=== PATIENT | male | born 1935 | race Caucasian/White ===

== ENCOUNTER 2024-11-13 19:06 | Inpatient (IN) | payer MEDICARE, BC ==
[~2024-11-13] VITALS: Ht 170.2 cm; Wt 117.8 kg
[2024-11-13] MEDS: NS (Normal Saline) 0.9% 1,000 ML IV SCH (21:29)
[2024-11-13] MEDS ORDERED: AMOX500T2 PO (22:11)
[2024-11-13] MEDS ORDERED: INSU100I24 INJ (22:11)
[2024-11-13] MEDS ORDERED: DICY20TA20 PO (22:19)
[2024-11-13] MEDS ORDERED: LANS30CA93 PO (22:19)
[2024-11-13] MEDS ORDERED: PREG75CA3 PO (22:19)
[2024-11-13] MEDS ORDERED: FLUTISP (22:19)
[2024-11-13] MEDS ORDERED: CYCL1DRO10 OU (22:19)
[2024-11-13] MEDS ORDERED: ALLO100T PO (22:19)
[2024-11-13] MEDS ORDERED: FURO20TA2 PO (22:19)
[2024-11-13] MEDS ORDERED: TOPI-256 PO (22:19)
[2024-11-13] MEDS ORDERED: LEVOTAB10 PO (22:19)
[2024-11-13] MEDS ORDERED: SIMV40TA20 PO (22:19)
[2024-11-13] MEDS ORDERED: BASA100I INJ (22:19)
[2024-11-13] MEDS ORDERED: BRIM0.2S13 OU (22:19)
[2024-11-13] MEDS ORDERED: NETA2.5D2 OU (22:19)
[2024-11-13] MEDS ORDERED: LEVO75TA4 PO (22:19)
[2024-11-13] MEDS ORDERED: ELIQ2.5T PO (22:19)
[2024-11-13] MEDS ORDERED: HOME MED LIST COMPLETE! XX SCH (22:20)
[2024-11-13] MEDS ORDERED: med rec comment (22:20)
[2024-11-13 22:39] LABS: BASO # 0.1 10^3/uL (0.0-0.2); BASO % 0.9 % (0.0-1.0); EOS # 0.5 10^3/uL (0.0-0.5); EOS % 5.0 % (0.0-3.0); LYMPH # 1.0 10^3/uL (1.5-5.0); LYMPH % 11.3 % (24.0-44.0); MONO # 0.6 10^3/uL (0.0-0.8); MONO % 7.0 % (2.0-8.0); NEUTROPHILS # 6.9 10^3/uL (1.5-8.5); NEUTROPHILS % 75.5 % (36.0-66.0); PLATELET COUNT, AUTOMATED 155 10^3/uL (150-450)
[2024-11-13 22:53] LABS: INR 1.02
[2024-11-13 23:01] LABS: CALCIUM LEVEL 9.0 MG/DL (8.3-10.6); CARBON DIOXIDE LEVEL 28.0 MMOL/L (20-31); CHLORIDE LEVEL 106.0 MMOL/L (98-107); CK-MB VALUE MASS 3.8 NG/ML (<3.6); CPK CREATINE PHOSPHOKINASE 110.0 U/L (46-171); CREATININE FOR GFR 1.87 MG/DL (0.70-1.30); GLOMERULAR FILTRATION RATE 34.2 (>35); MB/CK RELATIVE INDEX 3.45 (< OR =4); POTASSIUM SERUM 4.8 MMOL/L (3.5-5.1); SODIUM LEVEL 142.0 MMOL/L (136-145)
[2024-11-14] MEDS ORDERED: ACETAMINOPHEN *IV* 1,000 MG in IV 1 EA IV PRN (01:50)
[2024-11-14] MEDS ORDERED: GLUCOSE 4 GM CHEW PO PRN (01:50)
[2024-11-14] MEDS ORDERED: NALOXONE INJ 0.4 MG/1 ML VIAL IV PRN (01:50)
[2024-11-14] MEDS ORDERED: DEXTROSE 50% 50 ML SYRINGE IV PRN (01:50)
[2024-11-14] MEDS ORDERED: GLUCAGON INJ 1 MG VIAL SC PRN (01:50)
[2024-11-14] MEDS: TOPIRAMATE 25 MG TAB PO SCH (02:12)
[2024-11-14] MEDS: PREGABALIN 75 MG CAP PO SCH (02:12)
[2024-11-14] MEDS: LR 1,000 ML IV SCH (02:13)
[2024-11-14] MEDS: INSULIN LISPRO (NovoLOG) PER UNIT SC SCH ×3 (06:00→09:05)
[2024-11-14] MEDS: LEVOTHYROXINE 75 MCG TABLET (0.075 MG) PO SCH (06:00)
[2024-11-14 06:30] LABS: PLATELET COUNT, AUTOMATED 138 10^3/uL (150-450)
[2024-11-14 07:01] LABS: ALT/SGPT 18.0 U/L (7.0-40); AST/SGOT 24.0 U/L (<34); CALCIUM LEVEL 9.3 MG/DL (8.3-10.6); CARBON DIOXIDE LEVEL 24.0 MMOL/L (20-31); CHLORIDE LEVEL 107.0 MMOL/L (98-107); CREATININE FOR GFR 1.7 MG/DL (0.70-1.30); GLOMERULAR FILTRATION RATE 38.3 (>35); MAGNESIUM LEVEL 1.9 MG/DL (1.8-2.4); POTASSIUM SERUM 4.9 MMOL/L (3.5-5.1); SODIUM LEVEL 143.0 MMOL/L (136-145)
[2024-11-14] MEDS: DOCUSATE SODIUM 100 MG CAPSULE PO SCH (08:18)
[2024-11-14] MEDS ORDERED: PERCOCET 5MG/325MG TAB PO PRN ×2 (08:20)
[2024-11-14] MEDS ORDERED: MORPHINE 2 MG/ML 1 ML VIAL IV PRN ×2 (08:20→11:20)
[2024-11-14] MEDS ORDERED: DICYCLOMINE 10 MG CAP PO PRN (08:25)
[2024-11-14] MEDS ORDERED: OMEPRAZOLE 20MG CAP PO SCH (09:00)
[2024-11-14] MEDS: PANTOPRAZOLE 40MG VIAL IV SCH (09:04)
[2024-11-14] MEDS: LanTUS (INSULIN GLARGINE INJ) 1 UNITS/0.01 ML SC SCH (09:07)
[2024-11-14] MEDS: MORPHINE 2 MG/ML 1 ML VIAL IV PRN ×2 (09:14→14:36)
[2024-11-14] MEDS: AUGMENTIN 500 MG TAB PO SCH (11:57)
[2024-11-14 15:48] VITALS: TEMP 97.3
[2024-11-14 16:00] VITALS: BP 123/82; TEMP 97.7; O2SAT 95
[2024-11-14 19:47] VITALS: BP 130/80; TEMP 98.2; O2SAT 90
[2024-11-14 20:00] VITALS: BP 130/80; TEMP 98.2; O2SAT 90
[2024-11-14] MEDS: BRIMONIDINE 0.2% EYE DROPS (PATIENT'S OWN MED) OU SCH (21:00)
[2024-11-14] MEDS: SIMVASTATIN 40 MG TAB PO SCH (21:48)
[2024-11-15 03:58] VITALS: BP 154/71; TEMP 98.1; O2SAT 96
[2024-11-15 07:29] LABS: PLATELET COUNT, AUTOMATED 163 10^3/uL (150-450)
[2024-11-15 07:57] LABS: CALCIUM LEVEL 9.2 MG/DL (8.3-10.6); CARBON DIOXIDE LEVEL 26.0 MMOL/L (20-31); CHLORIDE LEVEL 105.0 MMOL/L (98-107); CREATININE FOR GFR 1.8 MG/DL (0.70-1.30); GLOMERULAR FILTRATION RATE 35.8 (>35); POTASSIUM SERUM 5.1 MMOL/L (3.5-5.1); SODIUM LEVEL 141.0 MMOL/L (136-145)
[2024-11-15] MEDS: OMEPRAZOLE 20MG CAP PO SCH (09:36)
[2024-11-15 12:00] VITALS: BP 150/66; TEMP 98.1
[2024-11-15] MEDS: MAALOX 30 ML SUSP *UDC PO PRN (17:54)
[2024-11-15 20:00] VITALS: BP 161/78; TEMP 98.4; O2SAT 92
[2024-11-15] MEDS: APIXABAN 2.5 MG TAB PO SCH (21:18)
[2024-11-15] MEDS: PERCOCET 5MG/325MG TAB PO PRN (21:18)
[2024-11-16 04:00] VITALS: BP 141/74; TEMP 97.9; O2SAT 96
[2024-11-16 07:46] LABS: PLATELET COUNT, AUTOMATED 126 10^3/uL (150-450)
[2024-11-16 08:23] LABS: CALCIUM LEVEL 8.8 MG/DL (8.3-10.6); CARBON DIOXIDE LEVEL 24.0 MMOL/L (20-31); CHLORIDE LEVEL 103.0 MMOL/L (98-107); CREATININE FOR GFR 2.08 MG/DL (0.70-1.30); GLOMERULAR FILTRATION RATE 30.1 (>35); POTASSIUM SERUM 5.1 MMOL/L (3.5-5.1); SODIUM LEVEL 137.0 MMOL/L (136-145)
[2024-11-16] MEDS ORDERED: LanTUS (INSULIN GLARGINE INJ) 1 UNITS/0.01 ML SC SCH (09:00)
[2024-11-16 12:00] VITALS: BP 135/74; TEMP 98.1; O2SAT 91
[2024-11-16] MEDS: FUROSEMIDE 20 MG TAB PO SCH (17:04)
[2024-11-16 19:36] VITALS: BP 140/67; TEMP 97.9; O2SAT 95
[2024-11-16 20:00] VITALS: BP 140/67; TEMP 97.9; O2SAT 95
[2024-11-17 04:30] VITALS: BP 134/67; TEMP 97.5; O2SAT 93
[2024-11-17 06:55] LABS: PLATELET COUNT, AUTOMATED 137 10^3/uL (150-450)
[2024-11-17 07:14] LABS: CALCIUM LEVEL 8.8 MG/DL (8.3-10.6); CARBON DIOXIDE LEVEL 23.0 MMOL/L (20-31); CHLORIDE LEVEL 102.0 MMOL/L (98-107); CREATININE FOR GFR 2.02 MG/DL (0.70-1.30); GLOMERULAR FILTRATION RATE 31.1 (>35); POTASSIUM SERUM 5.2 MMOL/L (3.5-5.1); SODIUM LEVEL 137.0 MMOL/L (136-145)
[2024-11-17] MEDS: LanTUS (INSULIN GLARGINE INJ) 1 UNITS/0.01 ML SC SCH (09:23)
[2024-11-17 12:00] VITALS: BP 125/75; TEMP 97.6; O2SAT 95
[2024-11-17 20:01] VITALS: BP 156/72; TEMP 98.2; O2SAT 98
[2024-11-17] MEDS: PERCOCET 5MG/325MG TAB PO PRN (21:37)
[2024-11-18 05:46] VITALS: BP 135/62; TEMP 98.1; O2SAT 95
[2024-11-18 07:38] LABS: PLATELET COUNT, AUTOMATED 143 10^3/uL (150-450)
[2024-11-18 08:00] LABS: CALCIUM LEVEL 8.6 MG/DL (8.3-10.6); CARBON DIOXIDE LEVEL 25.0 MMOL/L (20-31); CHLORIDE LEVEL 101.0 MMOL/L (98-107); CREATININE FOR GFR 1.97 MG/DL (0.70-1.30); GLOMERULAR FILTRATION RATE 32.1 (>35); POTASSIUM SERUM 4.9 MMOL/L (3.5-5.1); SODIUM LEVEL 136.0 MMOL/L (136-145)
[2024-11-18] MEDS: FUROSEMIDE 20 MG/2 ML VIAL IV ONE (11:04)
[2024-11-18] MEDS ORDERED: ALBUTEROL SULFATE 2.5 MG/0.5 ML INH CONCENTRATE NEB SOLN NEB PRN (11:50)
[2024-11-18] MEDS: IPRATROPIUM 0.5 MG/ALBUTEROL 2.5 MG INH SOL UD 3 ML NEB SCH (13:01)
[2024-11-18 13:17] LABS: ABG BASE EXCESS -0.6 (-2.0-2.0); ABG HCO3 24.1 MMOL/L (22.0-26.0); ABG O2 SATURATION 99.4 % (95.0-99.0); ABG PARTIAL PRESSURE CO2 39.9 mmHg (35.0-45.0); ABG PARTIAL PRESSURE O2 261.5 mmHg (75.0-100.0); ABG STANDARD HCO3 24.0 MMOL/L. (22.0-26.0); ABG TOTAL CO2 25.3 MMOL/L (23.0-31.0); ABG pH (ARTERIAL) 7.399 UNITS (7.350-7.450)
[2024-11-18] MEDS: MOM 30 ML SUSPENSION UDC PO PRN (13:23)
[2024-11-18] MEDS: TAMSULOSIN 0.4 MG CAP PO SCH (17:12)
[2024-11-18] MEDS: CEFDINIR 300 MG CAP PO SCH (17:12)
[2024-11-18] MEDS: FUROSEMIDE 40 MG/4 ML VIAL IV SCH (17:15)
[2024-11-18 19:33] VITALS: BP 138/65; TEMP 98.1; O2SAT 94
[2024-11-18] MEDS: DOXYCYCLINE HYCLATE 100 MG TABLET PO SCH (21:23)
[2024-11-18] MEDS: BISACODYL 10 MG SUPP PR SCH (21:26)
[2024-11-18] MEDS: NYSTATIN 100,000 UNITS/GM TOPICAL PWD 15 GM TOP SCH (21:27)
[2024-11-19 04:00] VITALS: BP 134/99; TEMP 98.1; O2SAT 97
[2024-11-19] MEDS: traMADol 50 MG TAB PO PRN (06:05)
[2024-11-19 07:28] LABS: PLATELET COUNT, AUTOMATED 162 10^3/uL (150-450)
[2024-11-19 07:58] LABS: CALCIUM LEVEL 9.1 MG/DL (8.3-10.6); CARBON DIOXIDE LEVEL 25.0 MMOL/L (20-31); CHLORIDE LEVEL 98.0 MMOL/L (98-107); CREATININE FOR GFR 2.13 MG/DL (0.70-1.30); GLOMERULAR FILTRATION RATE 29.2 (>35); POTASSIUM SERUM 5.0 MMOL/L (3.5-5.1); SODIUM LEVEL 134.0 MMOL/L (136-145)
[2024-11-19] MEDS ORDERED: FUROSEMIDE 40 MG/4 ML VIAL IV SCH (09:00)
[2024-11-19] MEDS: FUROSEMIDE 20 MG/2 ML VIAL IV ONE (09:20)
[2024-11-19] MEDS: LACTULOSE 20 GM/30 ML SYRUP UDC PO SCH (12:20)
[2024-11-19] MEDS: FUROSEMIDE 100 MG/10 ML VIAL IV SCH (17:03)
[2024-11-19 19:37] VITALS: BP 144/67; TEMP 97.6; O2SAT 93
[2024-11-20 02:55] VITALS: BP 155/82; TEMP 97.7; O2SAT 94
[2024-11-20 03:30] VITALS: BP 155/82; TEMP 97.7; O2SAT 94
[2024-11-20 06:32] LABS: PLATELET COUNT, AUTOMATED 201 10^3/uL (150-450)
[2024-11-20 06:49] LABS: CALCIUM LEVEL 9.7 MG/DL (8.3-10.6); CARBON DIOXIDE LEVEL 26.0 MMOL/L (20-31); CHLORIDE LEVEL 95.0 MMOL/L (98-107); CREATININE FOR GFR 2.09 MG/DL (0.70-1.30); GLOMERULAR FILTRATION RATE 29.9 (>35); POTASSIUM SERUM 4.4 MMOL/L (3.5-5.1); SODIUM LEVEL 136.0 MMOL/L (136-145)
[2024-11-20 09:00] VITALS: BP 161/102; TEMP 97.4; O2SAT 96
[2024-11-20 13:15] VITALS: BP 169/77
[2024-11-20] MEDS: **hydrALAZINE** 10 MG TAB PO ONE (13:51)
[2024-11-20 14:20] VITALS: BP 147/94
[2024-11-20] MEDS ORDERED: NEOSTIGMINE 10 MG/10 ML VIAL IV ONE (16:30)
[2024-11-20] MEDS: INSULIN LISPRO (NovoLOG) PER UNIT SC SCH (17:31)
[2024-11-20] MEDS: PANTOPRAZOLE 40MG VIAL IV SCH (17:32)
[2024-11-20] MEDS: DOXYCYCLINE HYCLATE 100 MG in DEXTROSE 5% (D5W) MINI-BAG PLU 100 ML IV SCH (17:32)
[2024-11-20] MEDS: cefTRIAXone SOD 1 GM in DEXTROSE 5% (D5W) ADV/MINI-BAG 50 ML IV SCH (18:36)
[2024-11-20] MEDS ORDERED: ATROPINE SULF 1 MG/10 ML SYRINGE IV PRN (22:05)
[2024-11-21] VITALS (7 sets, daily range): BP systolic 129–149; BP diastolic 60–80; TEMP 97.1–98.2; O2SAT 94–98
[2024-11-21 05:51] LABS: PLATELET COUNT, AUTOMATED 247 10^3/uL (150-450)
[2024-11-21 06:03] LABS: CALCIUM LEVEL 9.4 MG/DL (8.3-10.6); CARBON DIOXIDE LEVEL 28.0 MMOL/L (20-31); CHLORIDE LEVEL 97.0 MMOL/L (98-107); CREATININE FOR GFR 2.08 MG/DL (0.70-1.30); GLOMERULAR FILTRATION RATE 30.1 (>35); POTASSIUM SERUM 4.1 MMOL/L (3.5-5.1); SODIUM LEVEL 135.0 MMOL/L (136-145)
[2024-11-21] MEDS: INSULIN LISPRO (NovoLOG) PER UNIT SC SCH ×2 (14:10→20:34)
[2024-11-21] MEDS: LEVOTHYROXINE 75 MCG TABLET (0.075 MG) PO SCH (14:11)
[2024-11-21] MEDS: SIMETHICONE 80MG CHEW TAB PO SCH (14:11)
[2024-11-21] MEDS: HEPARIN SOD 5000 UNITS/ML 1 ML VIAL/SYRINGE SQ SCH (14:11)
[2024-11-21] MEDS: APIXABAN 2.5 MG TAB PO SCH (20:41)
[2024-11-21] MEDS: TAMSULOSIN 0.4 MG CAP PO SCH (20:42)
[2024-11-21] MEDS: SIMVASTATIN 40 MG TAB PO SCH (20:42)
[2024-11-21] MEDS: TOPIRAMATE 25 MG TAB PO SCH (20:43)
[2024-11-22] VITALS (16 sets, daily range): BP systolic 116–168; BP diastolic 59–78; TEMP 97–98.8; O2SAT 95–99
[2024-11-22 05:33] LABS: BASO # 0.1 10^3/uL (0.0-0.2); BASO % 0.8 % (0.0-1.0); EOS # 0.7 10^3/uL (0.0-0.5); EOS % 7.3 % (0.0-3.0); LYMPH # 0.8 10^3/uL (1.5-5.0); LYMPH % 9.5 % (24.0-44.0); MONO # 0.8 10^3/uL (0.0-0.8); MONO % 8.8 % (2.0-8.0); NEUTROPHILS # 6.5 10^3/uL (1.5-8.5); NEUTROPHILS % 73.1 % (36.0-66.0); PLATELET COUNT, AUTOMATED 267 10^3/uL (150-450)
[2024-11-22 05:51] LABS: CALCIUM LEVEL 9.4 MG/DL (8.3-10.6); CARBON DIOXIDE LEVEL 26.0 MMOL/L (20-31); CHLORIDE LEVEL 99.0 MMOL/L (98-107); CREATININE FOR GFR 1.91 MG/DL (0.70-1.30); GLOMERULAR FILTRATION RATE 33.3 (>35); POTASSIUM SERUM 4.3 MMOL/L (3.5-5.1); SODIUM LEVEL 138.0 MMOL/L (136-145)
[2024-11-22] MEDS: MIRALAX *UNIT DOSE* 17 GM PACKET PO SCH (09:00)
[2024-11-22] MEDS ORDERED: BISACODYL 10 MG SUPP PR PRN (11:35)
[2024-11-22] MEDS: FUROSEMIDE 20 MG TAB PO SCH (12:12)
[2024-11-22] MEDS: ACETAMINOPHEN 500 MG TAB PO SCH (13:50)
[2024-11-22] MEDS: PREGABALIN 75 MG CAP PO SCH (21:11)
[2024-11-22] MEDS: SENNOSIDES/DOCUSATE SODIUM 8.6 MG/50MG TAB PO SCH (21:11)
[2024-11-23] VITALS: BP 127/69; TEMP 98.2; O2SAT 96
[2024-11-23 08:00] VITALS: BP 139/75; TEMP 97; O2SAT 98
[2024-11-23 09:13] VITALS: BP 123/61
[2024-11-23] MEDS ORDERED: SENN-122 PO (10:40)
[2024-11-23] MEDS ORDERED: DULC10SU2 PR (10:40)
[2024-11-23] MEDS ORDERED: TYLE650T38 PO (10:40)
[2024-11-23] MEDS ORDERED: PREG75CA3 PO (10:40)
[2024-11-23] MEDS ORDERED: MIRA3350 PO (10:40)
[2024-11-23 10:51] VITALS: BP 123/62; TEMP 97.7; O2SAT 94
== END 2024-11-23 13:08 | DRG 562 ==
LOC: M ED 19:06 → EDBD 19:06 → M ED INP 22:59 → M MS5PR 11-14 15:58 → M ICU 11-20 23:30 → M MSPAV 11-23 10:35
PROVIDERS: ADMIT Family Medicine; ATTEND Internal Medicine
DX: S42.302A Unspecified fracture of shaft of humerus, left arm, initial encounter for closed fracture (principal); G93.41 Metabolic encephalopathy; I50.33 Acute on chronic diastolic (congestive) heart failure; J18.9 Pneumonia, unspecified organism; N18.4 Chronic kidney disease, stage 4 (severe); M97.32XA Periprosthetic fracture around internal prosthetic left shoulder joint, initial encounter; I13.0 Hypertensive heart and chronic kidney disease with heart failure and stage 1 through stage 4 chronic kidney disease, or unspecified chronic kidney disease; J98.11 Atelectasis; E11.22 Type 2 diabetes mellitus with diabetic chronic kidney disease; Z79.4 Long term (current) use of insulin; I48.91 Unspecified atrial fibrillation; I25.10 Atherosclerotic heart disease of native coronary artery without angina pectoris; Z96.653 Presence of artificial knee joint, bilateral; G47.33 Obstructive sleep apnea (adult) (pediatric); Z95.5 Presence of coronary angioplasty implant and graft; Z95.0 Presence of cardiac pacemaker; W19.XXXA Unspecified fall, initial encounter; Z96.612 Presence of left artificial shoulder joint; E11.621 Type 2 diabetes mellitus with foot ulcer; E03.9 Hypothyroidism, unspecified; E11.42 Type 2 diabetes mellitus with diabetic polyneuropathy; I35.0 Nonrheumatic aortic (valve) stenosis; L97.529 Non-pressure chronic ulcer of other part of left foot with unspecified severity; E78.5 Hyperlipidemia, unspecified; R26.9 Unspecified abnormalities of gait and mobility; M10.9 Gout, unspecified; K59.81 Ogilvie syndrome; Z96.643 Presence of artificial hip joint, bilateral; Z79.899 Other long term (current) drug therapy; Z79.890 Hormone replacement therapy; H40.9 Unspecified glaucoma; Y92.009 Unspecified place in unspecified non-institutional (private) residence as the place of occurrence of the external cause